=== PATIENT | female | born 1980 | race Caucasian/White ===

== ENCOUNTER 2021-03-07 18:03 | Emergency (ER) | payer OTHER, SELFPAY ==
[2021-03-07 18:05] VITALS: BP 141/82; PULSE 88; RESP 17; TEMP 36.1; O2SAT 97; BMI 27.8
[2021-03-07 18:55] LABS: Absolute Lymphocyte Count 0.74 X10^3/uL (0.83-4.51); Absolute Neutrophil Count 1.6 X10^3/uL (2.0-7.7); Basophil# 0.01 X10^3/uL; Basophil% 0.4 % (0-1); Eosinophil# 0.02 X10^3/uL; Eosinophils% 0.7 % (0-5); Hematocrit 39.7 % (37-47); Hemoglobin 13.1 g/dL (12.0-15.0); Lymphocyte # 0.74 X10^3/ul (0.83-4.51); Lymphocyte % 27.3 % (19-41); Mean Corpuscular Hgb 28.4 pg (27.0-32.0); Mean Corpuscular Volume 85.9 fL (81-99); Mean Platelet Vol. 9.7 fl (6.2-12.0); Monocyte# 0.35 X10^3/uL; Monocyte% 12.9 % (0-10); NRBC Flagged by Analyzer 0 % (0-5); Neutrophil # 1.59 X10^3/uL (2.7-7.7); Neutrophil % 58.7 % (47-70); Platelet Count 238 K/mm3 (150-450); RBC Distribution Width CV 12.7 % (11.6-14.6); RBC Distribution Width SD 39.4 fl (35.1-43.9); Red Blood Count 4.62 M/mm3 (4.2-5.4); White Blood Count 2.7 K/mm3 (4.4-11.0)
[2021-03-07 19:00] LABS: Internal QC Validated? YES +Cl - CLEAR BKGD; Pregnancy, Serum, hCG Quali. NEGATIVE Negative
--- NOTE | 2021-03-07 19:01 | ED.RN ---
urine collected, questionable if urine or water. lab aware and will contact demi.
--- NOTE | 2021-03-07 19:02 | CM.ED ---
Social Work Telephone call from crisis, Renetta. Patient pink slipped by Renetta and assessment completed. Renetta recommending in patient psychiatric placement due to patient bazar behavior. Renetta reports that patient has been wondering and carrying around a baby doll stating to have delivered this baby. Renetta to fax crisis assessment when completed. Medical team updated on above. Will continue to follow as needed. Khoa GALEAS, SHANAE
[2021-03-07 19:05] LABS: Anion Gap 7 (5-15); BUN 9 mg/dL (7-18); BUN/Creat Ratio 9.8 RATIO (10-20); Calcium,Total 8.9 mg/dL (8.5-10.1); Chloride 104 mmol/L (98-107); Creatinine, Serum 0.92 mg/dL (0.55-1.02); EST Glomerular Filtration Rate 72 mL/min (>60); Est Glom Filt Rate - Afr Amer 87 mL/min (>60); Estimated Creatinine Clearance 70.89 ml/min; Glucose 126 mg/dL (74-106); Potassium 3.2 mmol/L (3.5-5.1); Sodium Level 137 mmol/L (136-145)
--- NOTE | 2021-03-07 19:13 | ED.RN ---
PT URINE SAMPLE IS WATER. IT IS COLD, CLEAR WITH PH AND SPECIFIC GRAVITY CONSISTENT WITH WATER. WHEN CONFRONTED PT STATES HOW COULD YOU POSSIBLY KNOW THAT. WHEN THIS NURSE EXPLAINED THAT THE URINE SAMPLE WAS COLD WITH THE PH AND SPECIFIC GRAVITY CONSISTENT WITH WATER THE PT STATES WELL I FORGET AND MISSED THE CUP SO I JUST SCOOPED IT OUT OF THE TOILET. PT INFORMED THAT SHE NEEDS TO PROVIDE ANOTHER URINE SAMPLE AND A STAFF MEMBER WILL REMAIN IN THE ROOM WHEN SHE PROVIDES THE SAMPLE
[2021-03-07 19:21] VITALS: BP 125/80; PULSE 89; RESP 16; O2SAT 98
--- NOTE | 2021-03-07 20:00 | RAD_ITS ---
STUDY: X-RAY CHEST REASON FOR EXAM: Female, 41 years old. Altered mental status. Mental health changes. TECHNIQUE: Single AP portable view of the chest. COMPARISON: None. FINDINGS: The lungs are clear and expanded. There is no demonstrated pleural abnormality. Normal size heart. Normal mediastinum and joel. Normal visualized pulmonary arteries. Normal visualized aortic arch and descending thoracic aorta. Normal visualized thoracic spine. Normal visualized ribs, clavicles, and shoulders. There is no demonstrated abnormality of the visualized soft tissue structures of the upper abdomen. RAD/Chest 1 View (Portable) IMPRESSION: Normal x-ray examination of the chest. Electronically Signed: Mau Muir DO at 20:30 EST ,
[2021-03-07 21:11] LABS: Amphetamine Urine VISTA NEGATIVE (<1000 ng/mL); Barbiturate Urine VISTA NEGATIVE (< 200 ng/mL); Benzodiazepine Urine VISTA NEGATIVE (< 200 ng/mL); Cocaine Urine VISTA NEGATIVE (< 300 ng/mL); Ecstacy Urine VISTA NEGATIVE (< 500 ng/mL); Methadone Urine VISTA NEGATIVE (< 300 ng/mL); PCP Urine VISTA NEGATIVE (< 25 ng/mL); THC Urine VISTA NEGATIVE (< 50 ng/mL); Vista UDS pH Range 5
--- NOTE | 2021-03-07 21:17 | EDS_ITS ---
HPI HPI - Psych History of Present Illness Chief Complaint: Mental Health Narrative Narrative: 41-year-old female with apparent history of bipolar disorder presenting with worsening symptoms. Apparently per her she had been running away from home and hiding in the [place] over the last couple of months. She does come back but sometimes has to send police for her. Patient is not taking her medications and the symptoms are only getting worse. Her does report that she also has times where she climbs up into the rafters of the attic. She also throws hard objects at the merino and reports that this is how she was trained to deal with her emotions. She has not thrown any objects that her kids or her family. Patient also was seen in court today where she had a baby doll which she was claiming was her son Myles. She was present with her husb and at court due to her current erratic behavior and it was noted that time that she did appear to be exhibiting odd behavior. states that she has been difficult to manage without her medications. The court did order her to seek psychiatric care. During my interview in the room the the patient states that the dull is not her son it is her daughter son, and her replied our daughter is a child and she does not have a son. Patient is not expressing any suicidal ideation however the has related to me that over the past 10 days she stated that she was going to kill her family. She states that she did this out of anger and did not actually mean that she would do it. PFSH PFSH Home Medications aripiprazole [Abilify] 20 mg PO DAILY 02/25/17 [History Last Taken Unknown] lamotrigine [Lamictal] 100 mg PO DAILY 02/25/17 [History Last Taken Unknown] Allergy/AdvReac Type Severity Reaction Status Date / Time cefoxitin [From Mefoxin] Allergy Hives Verified 03/07/21 18:04 Social History Smoking Status: Never smoker ROS ROS ED Constitutional Constitutional ED: Denies chills or fever(s) Eyes Eyes: Denies blurry vision or change in vision ENT ENT ED: Denies rhinorrhea or sore throat Cardiovascular Cardiovascular: Denies chest pain or palpitations Respiratory/Chest Respiratory/Chest: Denies cough or dyspnea Gastrointestinal Gastrointestinal: Denies abdominal pain, nausea or vomiting Genitourinary Genitourinary ED: Denies dysuria or hematuria Musculoskeletal Musculoskeletal: Denies arthralgias or myalgias Integumentary Denies abscess or rash Neurologic Neurologic: Denies headache(s) or weakness EXAM Physical Exam Const Vital Signs: 03/07/21 18:05 03/07/21 19:21 03/07/21 22:00 Temperature 97.0 F L Temperature Source Temporal Pulse Rate 88 89 76 Respiratory Rate 17 16 16 Blood Pressure 141/82 H 125/80 H 124/72 H Blood Pressure Mean 101 95 89 Pulse Ox 97 98 98 Oxygen Delivery Method Room Air Room Air Nasal Cannula Positive well nourished General Appearance ED: NAD HEENT Reports moist mucous membranes normocephalic Eyes PERRL and EOMs intact bilaterally Resp normal respiratory effort and clear to auscultation bilaterally Cardio Rate: regular rate Rhythm: regular rhythm Neuro oriented x3, CN's II-XII intact bilaterally and no sensory deficits noted Sensorium / Orientation: alert Motor Exam: strength 5/5 throughout Psych Appearance: grossly normal Attitude: bizarre, uncooperative and agitated Activity / Motor Behavior: psychomotor agitation, disorganized, restless and avoids eye contact Mood & Affect: euphoric and hostile affect Thought Process: disorganized, confused and illogical Thought Content: No suicidality, homicidality, No phobia(s) and No hallucination(s) Attention / Concentration: attention grossly impaired Memory / Cognition: memory grossly impaired Insight: poor Judgement: poor Skin Lesions: no lesions Rashes: no rashes MDM MDM MDM Narrative Medical decision making narrative: Patient initially evaluated crisis. They felt she needed to be inpatient. I did obtain blood work and she is leukopenic and lymphopenic. Renal function is normal. Potassium slightly low at 3.2. This was repleted orally. EtOH is negative. Drug abuse screen is negative. hCG negative. Patient did test positive for Covid on the rapid test. Chest x- ray my interpretation shows no acute cardiopulmonary process and the radiologist does agree. Vital signs are stable and patient not tachypneic, tachycardic, hypoxic. It was requested that patient have a Covid PCR test. Patient does not currently have any symptoms of COVID-19. Patient is currently medically cleared to be seen by crisis. Patient was signed out to incoming ED physician for monitoring until his catheter. Impression: 1. Homicidal thoughts 2. Acute delirium 3. Noncompliance with psychiatric medication. Lab Data Attestation: I reviewed the patient's lab results. Labs: Laboratory Results - last 24 hr 03/07/21 03/07/21 03/07/21 18:35 18:35 18:35 WBC 2.7 L RBC 4.62 Hgb 13.1 Hct 39.7 MCV 85.9 MCH 28.4 MCHC 33.0 RDW Std Deviation 39.4 RDW Coeff of Jaiden 12.7 Plt Count 238 MPV 9.7 Immature Gran % (Auto) 0.000 Neut % (Auto) 58.7 Lymph % (Auto) 27.3 Montcalm % (Auto) 12.9 H Eos % (Auto) 0.7 Baso % (Auto) 0.4 Absolute Neuts (auto) 1.6 L Absolute Lymphs (auto) 0.74 L Nucleated RBC % 0 Sodium 137 Potassium 3.2 L Chloride 104 Carbon Dioxide 26.0 Anion Gap 7 BUN 9 Creatinine 0.92 Estim Creat Clear Calc 70.89 Est GFR (MDRD) Af Amer 87 Est GFR (MDRD) Non-Af 72 BUN/Creatinine Ratio 9.8 L Glucose 126 H Calcium 8.9 Serum , Qual Urine Opiates Screen Urine Methadone Screen Ur Barbiturates Screen Ur Phencyclidine Scrn Ur Amphetamines Screen U Methamphetamin-MDMA U Benzodiazepines Scrn Urine Cocaine Screen U Cannabinoids Screen Ur Drug Screen Comment Ethyl Alcohol 4.0 03/07/21 03/07/21 18:35 20:20 WBC RBC Hgb Hct MCV MCH MCHC RDW Std Deviation RDW Coeff of Jaiden Plt Count MPV Immature Gran % (Auto) Neut % (Auto) Lymph % (Auto) Montcalm % (Auto) Eos % (Auto) Baso % (Auto) Absolute Neuts (auto) Absolute Lymphs (auto) Nucleated RBC % Sodium Potassium Chloride Carbon Dioxide Anion Gap BUN Creatinine Estim Creat Clear Calc Est GFR (MDRD) Af Amer Est GFR (MDRD) Non-Af BUN/Creatinine Ratio Glucose Calcium Serum , Qual NEGATIVE Urine Opiates Screen NEGATIVE Urine Methadone Screen NEGATIVE Ur Barbiturates Screen NEGATIVE Ur Phencyclidine Scrn NEGATIVE Ur Amphetamines Screen NEGATIVE U Methamphetamin-MDMA NEGATIVE U Benzodiazepines Scrn NEGATIVE Urine Cocaine Screen NEGATIVE U Cannabinoids Screen NEGATIVE Ur Drug Screen Comment Ethyl Alcohol Radiography Diagnostic Testing: Clinical Impression(s) from Imaging Studies Chest X-Ray 03/07/21 20:00 IMPRESSION: Normal x-ray examination of the chest. Electronically Signed: Mau Muir DO at 20:30 EST Reading Location ID and State: [address] [place] [address] Tel [phone], Service support , Discharge Plan Triage Chief Complaint: Mental Health ED Provider: Abraham Sanders Dx/Rx/DC Orders Prescriptions: No Action lamotrigine [Lamictal] 200 MG tablet 100 mg PO DAILY RF: 0 aripiprazole [Abilify] 20 MG tablet 20 mg PO DAILY RF: 0 Primary Care Provider: Asher Geronimo
--- NOTE | 2021-03-07 21:24 | CM.ED ---
Social Work Telephone call from Rosalba paz. Requesting clinicals. This social secretary updated Rosalba on positive COVID-19 status and pending PCR. Rosalba request for the current resulted information. This social secretary also updated Rosalba that doctor has not put in note yet. This social secretary faxed clinical information that has been obtained. Currently pending doctor note and PCR results. Medical team updated. Khoa GALEAS, SHANAE
[2021-03-07 22:00] VITALS: BP 124/72; PULSE 76; RESP 16; O2SAT 98
[2021-03-07 23:00] VITALS: RESP 15
[2021-03-07] MEDS: Potassium Chloride Oral Tablet 20 MEQ 40 MEQ PO (23:06)
[2021-03-08] VITALS (21 sets, daily range): BP systolic 109–129; BP diastolic 66–88; PULSE 54–75; RESP 14–18; O2SAT 97–100
--- NOTE | 2021-03-08 07:55 | EKG12_ITS ---
Test Reason : PLACEMENT Blood Pressure : / mmHG Vent. Rate : 065 BPM Atrial Rate : 065 BPM P-R Int : 146 ms QRS Dur : 084 ms QT Int : 420 ms P-R-T Axes : 045 028 035 degrees QTc Int : 436 ms Normal sinus rhythm Normal ECG Confirmed by BOOGIE WEBBER, JEFF ([id number]), editor & co founder BERNARDA CAMPA ([id number]) on 03/10/2021 10:52:34 AM Referred By: INGRID Confirmed By:GERTRUDIS HYMAN MD
--- NOTE | 2021-03-08 07:56 | ED.RN ---
[facility] STATES SHE WILL LOOK INTO IF WE CAN TAKE PT WITH POSITIVE COVID. WANTS EKG FAXED TO FACILITY
--- NOTE | 2021-03-08 12:55 | CM.ED ---
MOISE Note SW called Crisis and left voice mail message for Crisis to call this policy writer sales. SW called [facility]. They are beginning to review referral however, will need letter from [facility] regarding patient's financial responsibility. SW spoke to patient and her , Parminder. Explained that hospital will need financial responsibility letter to be sent to accepting hospital. Parminder will call the [facility] team, [facility] and [facility] Anaya and ask them to call this policy writer sales. Patient has previously been hospitalized at [facility] in [place]. SW called and left voice mail for Caitlyn James. SW spoke and updated Caitlyn James regarding case. SW received call from Tyler Anaya. SW explained that this policy writer sales needs a letter from [facility] regarding financial responsibility. Tyler said that he is also willing to provide deposit check. Tyler has no credit card. SW received call from Renetta at [facility]. [facility] is not accepting as their covid unit is dual diagnosis primarily and they need patient's to keep their masks on. Patient will need to be in quarantine for 5 days. SW called [facility]. NO outside hospital COVID positive referrals. SW called [facility]. No covid positive patients accepted for psych. SW called [facility]. No covid positive psych referrals accepted. SW called [facility]. No covid positive psych referrals accepted. SW called [facility]. No covid positive psych referrals accepted. SW called [facility] and they will not accept covid positive patients for psych treatment. SW called [facility] and they indicated that patient is a little young for their psych treatment facility. SW called [facility]. No covid positive psych treatment referrals accepted. SW called [facility]. No covid positive psych treatment referrals accepted. SW called [facility] in [place]. They have covid unit but will only take admissions through their ED. SW called [facility]. They are not accepting outside hospital covid positive referrals. SW called [facility]. They will review referral. SW faxed referral to [facility]. SW called [facility]. They do not accept COVID positive referrals for psych but their sister referral, [facility] does accept referrals for COVID positive. SW called [facility]. They have COVID positive psych unit however are on wait list. SW faxed referral to [facility]. SW called [facility] in [place]. They referraled me to [facility]. [facility] are not taking any referrals for covid positive from outside hospital. SW called [facility]. No covid positive patients referrals. SW called [facility]. No covid positive patient referrals. SW called [facility]. They declined patient due to covid positive. SW called [facility]. No covid positive psych referrals accepted SW left voice mail for [facility]. SW called [facility] in [place]. No covid positive psych referrals accepted. SW called [facility]. Left voice mail. SW called [facility]. No covid positive psych patient referrals outside of the area. SW called [facility]. No outside referrals accepted. SW called [facility]. No psych covid positive referrals accepted. SW called [facility]. No outside hospital referrals accepted. SW called [facility]. No covid psych referrals accepted. SW called [facility]. No covide positive psych referrals accepted. SW called [facility]. No covid positive psych referrals. Will review when through 5 days and asymptomtic. SW called [facility]. No covid positive psych referrals until 10 days from test. SW called [facility]. They are not taking covid positive psych patient referrals. SW called [facility]. They are not accepting covid positive psych referrals. SW called [facility]. They are not accepting covid positive psych referrals. SW received voice mail message from [facility]. They said that the MD declined patient as he felt that the patient could not be managed on the covid unit due to her running away. MOISE called [facility] and advised that patient has not been running away and has been managed her in the ED. MOISE received call from [facility] at [facility]. [facility] is a no go as they do not have covid positive. Renetta feels that patient will need to be maintained in the ED and tested daily for covid.
--- NOTE | 2021-03-08 15:21 | CM.ED ---
MOISE Note SW called [facility]. They can not accept patient due to covid. They said that patient has to be 5 days out. MOISE then called back to [facility] to clarify if SW needs to make a new referral. Staff said that patient needs to be covid negative and out 5 days before a new referral can be made. MOISE explained that patient's who are through the period are testing positive for covid for days after the positive test and the [facility] social secretary said that is why we request the test. MOISE called Kaye at [facility] regarding patient. Shruthi from [facility] spoke to this software writer. Shruthi said that the earliest patient could be admitted is Sunday. Shruthi said that patient would be in general population. Shruthi said that worker would just need to fax updated clinicals to [facility]. Shruthi asked about the financial responsibility letter and social secretary stated that this worker has secured the letter. MOISE called [facility] from [facility] and left voice mail that no placement was secured for patient. MOISE called Renetta from [facility] and provided her with update. She said that the supervising appraiser wants patient to receive treatment and patient has not received treatment in the ED. She inquired about if a covid screen can be done daily for patient. MOISE called and updated Lisa Wetzel Auto Repair Technician. MOISE called Stacie Hagen at [facility] and updated her. Plan: Inpatient psych Olimpia BENITEZ
--- NOTE | 2021-03-08 17:53 | CM.ED ---
Addendum entered by Olimpia Phillip 03/08/21 18:00: [facility] for the [facility] contact number is [facility] [phone] daytime and evening number [phone]. Olimpia BENITEZ Original Note: MOISE called [facility] and spoke to Kayla. She said that their concern was about patient being psychotic and covid positive. Kayla said that patient needs to covid negative and 5 days from test. MOISE explained that patient may test positive after covid for up to 90 days. MOISE updated FAHAD English
[2021-03-08] MEDS: Ibuprofen 600 MG Tablet PO (19:09)
--- NOTE | 2021-03-08 19:29 | CM.ED ---
MOISE updated patient and his . Patient's will stay in the hospital overnight. All questions were answered. MOISE called [facility]. They have in the past accepted covid positive patient but she is not sure about currently. MOISE faxed referral to [facility]. Olimpia BENITEZ
--- NOTE | 2021-03-08 21:07 | CM.ED ---
Addendum entered by Olimpia Phillip 03/08/21 21:36: MOISE met with patient and his and updated them. MOISE attempted to call [facility] as they need to speak to patient. However, MOISE called and Patricia in admission was busy so MOISE left voice mail message requesting a call back. Original Note: MOISE Note MOISE received call from Patricia at [facility]. Patricia stated that she got a message from her house furnishings supervisor that they can accept patient after 5 days so patient could be accepted on Sunday. Patricia said that there seems to be nothing that would exclude patient from admission however, she needs to talk to patient prior to Sunday. Patricia said that she needs to talk to patient and do a prescreen on patient prior to Sunday. Patricia said to call the intake phone number [phone] so she can speak to patient before Sunday. Olimpia BENITEZ
--- NOTE | 2021-03-08 21:57 | CM.ED ---
MOISE Note Patricia from [facility] [phone] called this proposal lead writer and spoke to patient and did the prescreen for patient. MOISE spoke to Patricia and Patricia said that they will call and request update daily regarding patient and definitely will connect on and Sunday. Patricia said that they typically don't take a pink slip. Patricia said that her type photography supervisor would need to speak to the [facility] roman catholic team about the amount of money for the deposit for patient's hospitalization. MOISE provided phone number for [facility], who can get message to Tyler, on the roman catholic team. MOISE called [facility] and left message for him advising that staff from [facility] will be contacting them for the amount of deposit needed for patient. Plan: [facility] will call daily (MOISE gave the number for the storage battery charger phone)for update. [facility] will contact the roman catholic team about the amount of deposit. Typically, [facility] does not take pink slips so if patient is not agreeing to hospitalization or if there are concerns that patient will not comply with the treatment at [facility] then the plan will be for patient to go to [facility] in [place] on Sunday, where she would be pink slipped. Patient had made comment that Patricia from [facility] was nice. Olimpia BENITEZ
[2021-03-09] VITALS (11 sets, daily range): BP systolic 111–134; BP diastolic 69–87; PULSE 63–81; RESP 14–17; TEMP 36.1–37; O2SAT 98–100
--- NOTE | 2021-03-09 10:14 | CM.ED ---
Social Work Voicemail received from Kika at [facility] is declining patient due to only accept patients under voluntary and patient is currently pink slipped. At this time options are [facility] or [facility], both facilities are not able to accept until 5 days out, which would be Sunday for patient. Medical team updated on above. Will continue to follow. Khoa GALEAS, SHANAE
[2021-03-10] VITALS (11 sets, daily range): BP systolic 119–138; BP diastolic 71–89; PULSE 61–83; RESP 14–16; TEMP 36.6; O2SAT 99–100
[2021-03-10] MEDS: Ibuprofen 600 MG Tablet PO (03:28)
--- NOTE | 2021-03-10 13:40 | CASEMGMT ---
Call placed to pt's listed pharmacy [facility] in [place]. Their last recorded prescription was Abilify 30mg 1/2 tab daily which was last filled April,. Noted [facility] home med list included Lamictal 100mg daily which they did not have record of filling since August,. Dr. Aguirre is listed as the prescribing provider. This RN MARY CARMEN contacted Dr. Aguirre's office and spoke with Dr. Aguirre who confirms he has treated this patient in the past but has not seen her since August,. He noted the family had recently contacted him and reported the patient has not taken her medications for over a year. Dr. Aguirre confirmed Abilify 30mg 1/2 tab daily was the last prescription written in April, and recommended Zyprexa 10mg po qhs based on past behavior off medications. Will discuss with ED provider and staff. Naa Nichols RN CM
[2021-03-10] MEDS: OLANZapine 10 MG Tablet PO (14:24)
[2021-03-11] VITALS (13 sets, daily range): BP systolic 104–135; BP diastolic 68–78; PULSE 66–88; RESP 14–18; TEMP 36.8–37.1; O2SAT 96–98
[2021-03-11] MEDS: OLANZapine 10 MG Tablet PO (09:43)
--- NOTE | 2021-03-11 10:33 | ED.RN ---
THIS NURSE SPOKE WITH [facility]. PER RAGHU, [facility] WAS CANCELED ON SUNDAY. RAGHU DOES NOT BELIEVE THE PT WILL GO WILLINGLY. RAGHU WAS INFORMED [facility] SPOKE WITH THE PT THIS AM AND THEY WANTED TO KNOW WHAT TIME THE PT WILL BE PICKED UP TOMORROW. ALSO CHECKED TO SEE WHEN THE PT WILL BE RE-EVALUATED TODAY
--- NOTE | 2021-03-11 12:22 | CM.ED ---
Social Work Emergency Department Conferred with Vijaya Enciso RN in the Emergency Department. [facility] called in today asking when patient would be coming. Spoke with Kika, from [facility]. Kika reports she called [facility] today to cancel patient's bed, as well as had done so on on Sunday. [facility] is not an option due ot patient not being voluntary. Plans is for either [facility] or [facility] on Sunday as patient will be 5 days out from positive COVID test. Crisis remains involved with this patient. Updated Zaria in the ED. Hospital social work remains available should needs arise. -ELI Beavers, MEDIA PRODUCTION MANAGER
[2021-03-12] VITALS (23 sets, daily range): BP systolic 108–135; BP diastolic 71–97; PULSE 16–97; RESP 14–19; TEMP 36.6; O2SAT 99–100
--- NOTE | 2021-03-12 10:19 | CM.ED ---
Social Work Telephone call to [facility], Sue. This web content & social media manager seeking clarification about 5 day period before being able to accept after COVID-19 positive as patient was positive on 2021 and that was 6 days ago. Sue reports that the 5 days is 5 full days. Patient was positive for COVID-19 the evening of so that day is not being counted as a day. Today would be day 5 and patient will have to wait until the completion of today before being able to be accepted to [facility]. Sue encouraged a new referral to be faxed tomorrow. Telephone call to Kika Arellano. Kika updated on above and reports that crisis plans to follow up tomorrow on placement for patient. Medical team updated. Khoa Simeon MSW, SHANAE
[2021-03-12] MEDS: OLANZapine 10 MG Tablet PO (10:41)
--- NOTE | 2021-03-12 11:24 | ED.RN ---
This patient resting in room, coloring at this time, denies complaints. Breakfast and lunch meal trays given this date. Self ambulates to restroom.
--- NOTE | 2021-03-12 13:06 | CM.ED ---
Social Work Telephone conversation with patient spouse, Parminder. Parminder inquired about current plan. This social services aide updated Parminder on current status of referral. Parminder aware that patient can not be placed until tomorrow due to positive COVID-19 status and that tomorrow referral will be made to [facility] or [facility]. Social Work to continue to follow as needed. Khoa Simeon MSW, SHANAE
--- NOTE | 2021-03-12 16:50 | ED.RN ---
Patient denies needs at this time, meal tray given.
[2021-03-13] VITALS (7 sets, daily range): BP systolic 124; BP diastolic 79; PULSE 63; RESP 14–16; TEMP 37
--- NOTE | 2021-03-13 08:09 | NURSING ---
[id number] PAGED CRISIS [id number] PAGED CRISIS
--- NOTE | 2021-03-13 10:48 | NURSING ---
FAXED LETTER FROM GRAJEDA TO CRISIS USED [phone]
--- NOTE | 2021-03-13 12:02 | NURSING ---
ACCEPTED AT [facility]
--- NOTE | 2021-03-13 12:02 | NURSING ---
CALLED PHYSICANS FOR TRANSPORT ETA IS 30 MIN
[2021-03-13] MEDS: OLANZapine 10 MG Tablet PO (12:27)
== END 2021-03-13 13:11 ==
LOC: ED 19:01
PROVIDERS: Emergency Medicine; Emergency Provider Student in an Organized Health Care Education/Training Program; PCP Family Medicine; Visit Provider Student in an Organized Health Care Education/Training Program
DX: F31.9 Bipolar disorder, unspecified (principal); U07.1 COVID-19; Z91.14 Patient's other noncompliance with medication regimen; R45.850 Homicidal ideations; Z79.899 Other long term (current) drug therapy
CPT/HCPCS: 99281; 36415; 71045; 80048; 80307; 82077; 84703; 85025; 87426; 87635; 93005; 99285; U0003; U0005